=== PATIENT | male | born 1995 | race Caucasian/White ===

== ENCOUNTER 2020-03-27 16:42 | Emergency (ER) | payer SELFPAY ==
[2020-03-27 16:59] VITALS: TEMP 98.9
--- NOTE | 2020-03-27 17:33 | ED ---
General Adult HPI - General Chief complaint: Urogenital Stated complaint: possible herina Time Seen by Provider: 03/27/20 17:11 Source: patient Mode of arrival: ambulatory Limitations: no limitations - History of Present Illness Initial comments: Dictation was produced using [employer] dictation software. please excuse any grammatical, word or spelling errors. This patient was cared for during a federal and state declared state of emergency secondary to Covid 19 Chief Complaint: 24-year-old male noted blood in his urine today. History of Present Illness: 24-year-old male with proximal attending today he was urinating when he noted there was some blood in his urine. Urinated 4 times after that was all found to be clear. Patient has no pain. No flank pain. No abdominal pain. No other complaints. Is in a monogamous relationship with his . He has no concerns about sexually transmitted disease. The ROS documented in this emergency department record has been reviewed and confirmed by me. Those systems with pertinent positive or negative responses have been documented in the HPI. All other systems are other negative and/or noncontributory. PHYSICAL EXAM: General Impression: Alert and oriented x3, not in acute distress HEENT: Normocephalic atraumatic, extra-ocular movements intact, pupils equal and reactive to light bilaterally, mucous membranes moist. Cardiovascular: Heart regular rate and rhythm Chest: Able to complete full sentences, no retractions, no tachypnea Abdomen: abdomen soft, non-tender, non-distended, no organomegaly Musculoskeletal: Pulses present and equal in all extremities, no peripheral edema Motor: no focal deficits noted Neurological: CN II-XII grossly intact, no focal motor or sensory deficits noted Skin: Intact with no visualized rashes Psych: Normal affect and mood : No urethral bleeding, no testicular tenderness ED course: 24-year-old male presents with asymptomatic hematuria. Vital signs upon arrival are within acceptable limits. Urinalysis is unremarkable. Patient will be discharge. Is given referral to urology. - Related Data Allergies Allergy/AdvReac Type Severity Reaction Status Date / Time allopurinol Allergy Unknown Verified 03/27/20 17:00 Review of Systems ROS Statement: Those systems with pertinent positive or pertinent negative responses have been documented in the HPI. ROS Other: All systems not noted in ROS Statement are negative. Past Medical History Past Medical History: No Reported History History of Any Multi-Drug Resistant Organisms: None Reported Past Surgical History: No Surgical Hx Reported Past Psychological History: Anxiety Smoking Status: Current every day smoker Past Alcohol Use History: Rare Past Drug Use History: Marijuana General Exam Limitations: no limitations Course Vital Signs 03/27/20 16:55 Temperature 98.9 F Pulse Rate 107 H Respiratory 18 Rate Blood Pressure 129/80 O2 Sat by Pulse 98 Oximetry Medical Decision Making - Lab Data Lab Results 03/27/20 Range/Units 17:16 Urine Color Yellow Urine Appearance Clear (Clear) Urine pH 5.5 (5.0-8.0) Ur Specific [place] 1.035 (1.001-1.035) Urine Protein Trace H (Negative) Urine Glucose (UA) Negative (Negative) Urine Ketones Negative (Negative) Urine Blood Negative (Negative) Urine Nitrite Negative (Negative) Urine Bilirubin Negative (Negative) Urine Urobilinogen <2.0 (<2.0) mg/dL Ur Leukocyte Esterase Negative (Negative) Disposition Clinical Impression: Hematuria Disposition: HOME SELF-CARE Condition: Good Instructions (If sedation given, give patient instructions): Hematuria (ED) Is patient prescribed a controlled substance at d/c from ED?: No Referrals: Jose De Jesus Charles MD [STAFF PHYSICIAN] - 1-2 days Time of Disposition: 17:57
[2020-03-27 17:48] LABS: Appearance,Urine Clear (Clear); Bilirubin,Urine Negative (Negative); Blood,Urine Negative (Negative); Color,Urine Yellow; Glucose,Urine (UA) Negative (Negative); Ketones,Urine Negative (Negative); Leukocyte Esterase,Urine Negative (Negative); Nitrite,Urine Negative (Negative); PH, Urine 5.5 (5.0-8.0); Protein,Urine Trace (Negative); Specific Gravity,Urine 1.035 (1.001-1.035); Urobilinogen,Urine <2.0 mg/dL (<2.0)
[2020-03-27 18:31] VITALS: BP 121/81; PULSE 92; RESP 16
[2020-03-29 13:46] LABS: C. trachomatis,PCR Positive (Neg,Equiv); Chlamydia trachomatis Source Urine; N. gonorrhoeae,PCR Negative (Neg,Equiv); Neisseria Source Urine
== END 2020-03-27 18:25 | disposition home or self-care (01) ==
LOC: EC 16:42
DX: R31.9 Hematuria, unspecified (principal); F17.200 Nicotine dependence, unspecified, uncomplicated; Z88.8 Allergy status to other drugs, medicaments and biological substances
CPT/HCPCS: 81003; 87491; 87591; 99283

== ENCOUNTER 2021-01-30 14:44 | Emergency (ER) | payer OTHER ==
[2021-01-30 14:48] VITALS: BP 123/80; PULSE 99; RESP 20; TEMP 97.8
--- NOTE | 2021-01-30 16:13 | XR ---
EXAMINATION TYPE: XR ankle complete LT DATE OF EXAM: 01/30/2021 COMPARISON: NONE HISTORY: 25-year-old male ankle injury, inversion, pain TECHNIQUE: 3 views FINDINGS: There is slight widening of the distal tibiofibular overlap. Medial clear space is mildly widened at 4.3 mm. Talar dome is intact. No acute fracture, subluxation, dislocation. Marked lateral sided soft tissue swelling. IMPRESSION: 1. Slight medial clear space widening of 4.3 mm which may represent an underlying deltoid ligament te ar. 2. Widening of the distal tibiofibular overlap could represent a syndesmotic injury. Consider radiogr aphic assessment of the proximal fibula. 3. Pronounced lateral sided soft tissue swelling.
--- NOTE | 2021-01-30 16:23 | ED ---
Lower Extremity Injury HPI - General Chief Complaint: Extremity Injury, Lower Stated Complaint: L Ankle Injury Time Seen by Provider: 01/30/21 14:56 Source: patient Mode of arrival: ambulatory Limitations: no limitations - History of Present Illness Initial Comments: 25-year-old male presents to the emergency department with a chief complaint of left ankle pain. Patient reports incident occurred yesterday while he was moving a couch. He reports an inversion injury to the left foot and reports pain with inversion eversion plantar and dorsiflexion. Return denies taking medication to alleviate the symptoms. States the pain is alleviated at rest. Denies taking medication to alleviate the symptoms. He denies any associated paresthesias or weakness in the foot. Reports previous injury to the left lower leg many years ago. - Related Data Allergies Allergy/AdvReac Type Severity Reaction Status Date / Time allopurinol Allergy Unknown Verified 01/30/21 14:48 Review of Systems ROS Statement: Those systems with pertinent positive or pertinent negative responses have been documented in the HPI. ROS Other: All systems not noted in ROS Statement are negative. Past Medical History Past Medical History: No Reported History History of Any Multi-Drug Resistant Organisms: None Reported Past Surgical History: No Surgical Hx Reported Past Psychological History: Anxiety Smoking Status: Current every day smoker Past Alcohol Use History: Rare Past Drug Use History: Marijuana General Exam Limitations: no limitations General appearance: alert, in no apparent distress, obese Head exam: Present: atraumatic, normocephalic Eye exam: Present: normal appearance, PERRL, EOMI Pupils: Present: normal accommodation ENT exam: Present: normal exam, normal oropharynx, mucous membranes moist Neck exam: Present: normal inspection, full ROM. Absent: tenderness, lymphadenopathy Respiratory exam: Present: normal lung sounds bilaterally. Absent: respiratory distress, wheezes, rales, rhonchi, chest wall tenderness Cardiovascular Exam: Present: regular rate, normal rhythm, normal heart sounds. Absent: systolic murmur Extremities exam: Present: normal inspection (Swelling with mild ecchymosis of the left ankle), tenderness (Lateral malleolus tenderness. No tenderness over the lower leg or knee), normal capillary refill, joint swelling (Left ankle), other (Palpable DP and PT bilaterally. Sensation intact in the left lower extremity.). Absent: full ROM (Limited range of motion with dorsi and plantar flexion. Limited range of motion with inversion and eversion), pedal edema, calf tenderness Back exam: Present: normal inspection, full ROM. Absent: tenderness, CVA tenderness (R), CVA tenderness (L) Neurological exam: Present: alert, oriented X3 Psychiatric exam: Present: normal affect, normal mood Skin exam: Present: warm, dry, intact, normal color Course Vital Signs 01/30/21 14:46 Temperature 97.8 F Pulse Rate 99 Respiratory 20 Rate Blood Pressure 123/80 O2 Sat by Pulse 99 Oximetry Procedures - Orthopedic Splinting/Casting Injury #1 Side: left Lower Extremity Injury Location: ankle Lower Extremity Immobilizer: posterior splint, stirrup splint Other Orthopedic Equipment: crutches Medical Decision Making - Medical Decision Making 25-year-old male presents to the emergency department with a chief complaint of left ankle injury. Physical examination, patient is neurovascular intact. X- ray reveals a medial clear space widening of 4.3 mm which may represent a deltoid ligament tear. There is also widening of the distal tibial fibular overlap which could represent a syndesmotic injury. Imaging of the proximal fibula may be considered. I did offer this imaging to the patient, he declined. I also offered him analgesia, he declined. Posterior splint with ankle stirrups was applied. He was given prescription for crutches. Advised to follow with ux specialist. Return parameters were thoroughly discussed the patient is satting agreeable. Case discussed with Dr. Multani. Disposition Clinical Impression: Left ankle sprain, Left ankle swelling Disposition: HOME SELF-CARE Condition: Stable Instructions (If sedation given, give patient instructions): Ankle Sprain (ED) Additional Instructions: Follow-up with an ux specialist. Return to emergency department if symptoms worsen. Is patient prescribed a controlled substance at d/c from ED?: No Referrals: None,Stated [Primary Care Provider] - 1-2 days German Valles MD [STAFF PHYSICIAN] - 1-2 days Time of Disposition: 16:23
== END 2021-01-30 16:54 | disposition home or self-care (01) ==
LOC: EC 14:44
DX: S93.402A Sprain of unspecified ligament of left ankle, initial encounter (principal); F17.200 Nicotine dependence, unspecified, uncomplicated; F12.90 Cannabis use, unspecified, uncomplicated; X50.9XXA Other and unspecified overexertion or strenuous movements or postures, initial encounter
CPT/HCPCS: 29515; 99283

== ENCOUNTER 2021-01-31 22:09 | Emergency (ER) | payer OTHER ==
[2021-01-31 22:33] VITALS: BP 141/79; PULSE 90; RESP 18; TEMP 97.6
--- NOTE | 2021-01-31 22:45 | ED ---
Lower Extremity Injury HPI - General Chief Complaint: Extremity Injury, Lower Stated Complaint: Revisit L Foot swelling Time Seen by Provider: 01/31/21 22:19 Source: patient Mode of arrival: wheelchair Limitations: no limitations - History of Present Illness Initial Comments: 25-year-old male presents emergency Department with a chief complaint of left ankle swelling. Patient reports he was diagnosed with a severe ankle sprain yesterday and was given a splint. Patient reports throughout the day, he developed increased swelling and he removed the splint. States he applied ice compresses which helped some of the symptoms but the swelling still persistent so he came to the emergency department for further evaluation. He denies any paresthesias. He still reports limited range of motion same as yesterday. States she contacted her senior quality methods specialist and has an appointment on Wednesday. - Related Data Allergies Allergy/AdvReac Type Severity Reaction Status Date / Time allopurinol Allergy Unknown Verified 01/31/21 22:33 Review of Systems ROS Statement: Those systems with pertinent positive or pertinent negative responses have been documented in the HPI. ROS Other: All systems not noted in ROS Statement are negative. Past Medical History Past Medical History: No Reported History History of Any Multi-Drug Resistant Organisms: None Reported Past Surgical History: No Surgical Hx Reported Past Psychological History: No Psychological Hx Reported Smoking Status: Current every day smoker Past Alcohol Use History: Rare Past Drug Use History: Marijuana General Exam Limitations: no limitations General appearance: alert, in no apparent distress, obese Head exam: Present: atraumatic, normocephalic, normal inspection Eye exam: Present: normal appearance, PERRL, EOMI Pupils: Present: normal accommodation ENT exam: Present: normal exam, normal oropharynx, mucous membranes moist Neck exam: Present: normal inspection, full ROM. Absent: tenderness, lymphadenopathy Respiratory exam: Present: normal lung sounds bilaterally. Absent: respiratory distress Cardiovascular Exam: Present: regular rate, normal rhythm, normal heart sounds. Absent: systolic murmur Extremities exam: Present: tenderness (Lateral malleolus tenderness), normal capillary refill, other (Palpable DP and PT bilaterally). Absent: normal inspection (Swelling noted on the left ankle. Mild ecchymosis on the lateral malleolus noted), full ROM (Limited range of motion with inversion), pedal edema, calf tenderness Back exam: Present: normal inspection, full ROM. Absent: tenderness, CVA tenderness (R), CVA tenderness (L) Neurological exam: Present: alert, oriented X3 Psychiatric exam: Present: normal affect, normal mood Skin exam: Present: warm, dry, intact, normal color Course Vital Signs 01/31/21 22:30 Temperature 97.6 F Pulse Rate 90 Respiratory 18 Rate Blood Pressure 141/79 O2 Sat by Pulse 99 Oximetry Medical Decision Making - Medical Decision Making 25-year-old male presents emergency Department with a chief complaint of left ankle pain. On physical examination, patient is neurovascularly intact. He did not have the splint. I did offer to resplinted, he declined. States he can apply the same one that was applied yesterday at home. I reassured him that swelling is only secondary to the injury. He had normal capillary refill along with palpable pulses. He should reapply the splint. He will follow up with his appointment. Rest, ice, compression and elevation. Return parameters were discussed the patient was understanding and agreeable. Case discussed with Disposition Clinical Impression: Left ankle swelling, Left ankle sprain Disposition: HOME SELF-CARE Condition: Stable Instructions (If sedation given, give patient instructions): Ankle Sprain (ED) Additional Instructions: Please return to the Emergency Department if symptoms worsen or any other concerns. Is patient prescribed a controlled substance at d/c from ED?: No Referrals: None,Stated [Primary Care Provider] - 1-2 days Time of Disposition: 22:45
== END 2021-01-31 22:59 | disposition home or self-care (01) ==
LOC: EC 22:09
DX: S93.402A Sprain of unspecified ligament of left ankle, initial encounter (principal); F17.200 Nicotine dependence, unspecified, uncomplicated; F12.90 Cannabis use, unspecified, uncomplicated; X58.XXXA Exposure to other specified factors, initial encounter
CPT/HCPCS: 99283